=== PATIENT | male | born 1945 | race Two or more races ===

== ENCOUNTER 2018-12-05 11:27 | Inpatient (IN) | payer MEDICARE, MEDICAID ==
[~2018-12-05] VITALS: Ht 157.5 cm; Wt 56.7 kg
[~2018-12-05 11:27] MED LIST: BLOO-129 IN; CALC500T52 PO; DOCU100C36 PO; METF-440 PO; NIAC1000 PO; TAMS0.4C34 PO
--- NOTE | 2018-12-05 12:00 | NUR ---
patient BIBniece from home, sent by psych hearing voices -si/hi. on rom air, breathing evenly and unlabored connected to the monitor and pulse ox. kept comfortable, will continue to monitor accordingly.
--- NOTE | 2018-12-05 12:11 | NUR ---
urine collected and sent to lab
[2018-12-05] MEDS ORDERED: AMLODIPINE BESYLATE 5 MG TABLET ONE (12:29)
[2018-12-05] MEDS ORDERED: IV NS 0.9% 500 ML BAG IV ONE (12:30)
[2018-12-05] MEDS ORDERED: AMLODIPINE BESYLATE 5 MG TABLET PO ONE (12:30)
[2018-12-05 12:41] LABS: BASOPHILS % (AUTO) 0.5 % (0.0-2.0); EOSINOPHILS % (AUTO) 4.1 % (0.0-6.0); HEMATOCRIT 41 % (39-51); LYMPHOCYTES # (AUTO) 4.1 /CMM (0.8-4.8); LYMPHOCYTES % (AUTO) 48.5 % (20.0-44.0); MEAN CORPUSCULAR HGB CONC 34 g/dl (31.0-36.0); MEAN CORPUSCULAR VOLUME 98 fL (80-96); MONOCYTES # (AUTO) 0.5 /CMM (0.1-1.30); MONOCYTES % (AUTO) 6.3 % (2.0-12.0); NEUTROPHILS # (AUTO) 3.4 /CMM (1.8-8.9); NEUTROPHILS % (AUTO) 40.6 % (43.0-81.0); PLATELET COUNT (AUTO) 267 /CMM (150-450); RED BLOOD CELL COUNT(AUTO) 4.19 MIL/uL (4.5-6.0); WHITE BLOOD COUNT (AUTO) 8.5 K/uL (4.3-11.0)
[2018-12-05 12:48] LABS: APPEARANCE,URINE Clear (CLEAR); BILIRUBIN,URINE Negative (NEGATIVE); BLOOD, URINE Large Ery/uL (NEGATIVE); COLOR,URINE Yellow (YELLOW); KETONES,URINE Negative (NEGATIVE); LEUKOCYTE ESTERASE ,URINE Trace (NEGATIVE); NITRITE, URINE Negative (NEGATIVE); PROTEIN,URINE 30 mg/dl (NEGATIVE); UGLUCOSE Negative (NEGATIVE); UROBILINOGEN,URINE 0.2 EU/dL (0.2)
[2018-12-05 12:57] LABS: ALANINE AMINOTRANSFERASE 20 U/L (12-78); ALBUMIN 3.4 g/dL (3.4-5.0); ALCOHOL, BLOOD < 3 mg/dL (0-0); ALKALINE PHOSPHATASE 46 U/L (46-116); ASPARTATE AMINOTRANSFERASE 17 U/L (15-37); BILIRUBIN,DIRECT 0.1 mg/dL (0.0-0.2); BILIRUBIN,TOTAL 0.2 mg/dL (0.2-1.0); CALCIUM, SERUM 9.1 mg/dL (8.5-10.1); CARBON DIOXIDE 28 mmol/L (21-32); CHLORIDE 107 mmol/L (98-107); CREATININE 1.2 mg/dL (0.6-1.3); GLUCOSE 80 mg/dL (74-106); POTASSIUM 4.4 mmol/L (3.5-5.1); SODIUM SERUM 142 mmol/L (136-145); TOTAL PROTEIN, SERUM 7.2 g/dL (6.4-8.2); UREA NITROGEN, BLOOD 22 mg/dL (7-18)
[2018-12-05 12:58] LABS: BACTERIA,URINE Few /HPF (None Seen); SQUAMOUS EPITHELIAL CELL,UR Few /HPF (None Seen)
[2018-12-05 12:59] LABS: ACETAMINOPHEN 0 ug/ml (10-30); SALICYLATE 2.3 mg/dL (2.8-20.0)
--- NOTE | 2018-12-05 13:15 | NUR ---
SPOKE TO GPS ADMITTING AND WAS DIRECTED TO CALL ADMITTING TO HAVE PT SIGN VOLUNTARY FORMS. CALLED ADMITTING AND WAS DIRECTED TO CALL GPS, WHO THEN IN TURNED DIRECTED ME TO CALL ORTHOPAEDIC TECHNOLOGIST POWDER BLENDER. LEFT MESSAGE FOR ORTHOPAEDIC TECHNOLOGIST POWDER BLENDER TO COME IN AND HAVE PT SIGN VOLUNTARY FORM.
--- NOTE | 2018-12-05 13:58 | NUR ---
SPOKE TO OPERATIONS SUPPORT REPRESENTATIVE HEALTHCARE LIAISON. SHE IS GETTING CLARIFICATION AND WILL CALL ME BACK
--- NOTE | 2018-12-05 14:00 | NUR ---
GREIGE GOODS MARKER AUTOMOTIVE CONSULTANT ETA 45 MIN
[2018-12-05] MEDS ORDERED: DIVA500T2 PO (15:16)
[2018-12-05] MEDS ORDERED: HALO2TAB PO (15:16)
[2018-12-05] MEDS ORDERED: FINA5TAB11 PO (15:16)
[2018-12-05] MEDS ORDERED: AMLO5TAB4 PO (15:16)
[2018-12-05] MEDS ORDERED: PRAV20TA PO (15:23)
--- NOTE | 2018-12-05 17:06 | NUR ---
discharge patient via wheelchair going to room 215 2 Loan at bedside to assume care.
[2018-12-05] MEDS ORDERED: HALOPERIDOL LACTATE INJ 5 MG/ML VIAL IM STA (17:09)
[2018-12-05] MEDS ORDERED: diphenhydrAMINE HCL 50 MG/ML VIAL IM STA (17:10)
--- NOTE | 2018-12-05 17:15 | NUR ---
new pt. adm. to rm. and oriented. appears to be oriented x2.mentally slow and some difficulty answering question.skin check done and noted few bruises on knees.to take photos. initially hitting self and acting out. gas charger called in,call out to dr. mratins.received order for haldol and benadryl.
--- NOTE | 2018-12-05 17:20 | NUR ---
hep lock from er removed and bandage to site.
[2018-12-05] MEDS ORDERED: MAGNESIUM HYDROXIDE 30 ML UDC PO PRN (17:30)
[2018-12-05] MEDS ORDERED: ACETAMINOPHEN 325 MG TABLET PO PRN (17:30)
[2018-12-05] MEDS ORDERED: BLOOD SUGAR DIAGNOSTIC 1 EACH STRIP IN ONE (17:30)
[2018-12-05] MEDS ORDERED: MAG HYDROX/AL HYDROX/SIMETH 30 ML UDC PO PRN (17:30)
--- NOTE | 2018-12-05 17:40 | NUR ---
calmed pt. down-took 20 minutes to talk pt. in to putting on pt. gown.verbalized that he will not kill mom,and will be good,now says he wants to stay here a few days to get help.following nurse out of his rm. and in oneil.staying close by rn.wants reassurance as to where belongings are.abdayo cheryl called to inform her of pt. admit and status.
[2018-12-05] MEDS ORDERED: LORA1TAB PO (17:48)
--- NOTE | 2018-12-05 19:00 | NUR ---
accucheck done and 125 after eating dinner.
--- NOTE | 2018-12-05 19:00 | NUR ---
GPS ADMISSION NOTE, RECEIVED PATIENT FROM [facility]. PATIENT ARRIVED ON THIS UNIT AT 1999 VIA STRETCHER WITH EMT ESCORTS. PATIENT ADMITTED ON A 5150 HOLD FOR DTO, GD, AND DTS. PER HOLD PATIENT WAS BROUGHT TO E.R. AFTER PATIENT HAS BEEN GETTING PROGRESSIVELY WORSE OVER THE PAST THREE DAYS. PATIENT HAS NOT BEEN SLEEPING, IS HEARING VOICES, AND MAKING THREATS TO KILL OTHERS. PATIENT IS UNABLE TO CONTRACT FOR SAFETY AT THIS TIME. THE 5150 WAS REVIEWED AND THE DOCUMENTATION IN THE 5150 HOLD APPEARS TO REFLECT THE PRESENTATION OF THE PATIENT. UPON FACE TO FACE ASSESSMENT PATIENT IS NOTED TO BEING DISHEVELED, DISORGANIZED, DEPRESSED, CONFUSED, COOPERATIVE, PARANOID, AND NEEDS REDIRECTION. PATIENT IS CURRENTLY LYING IN BED AWAKE, HAS NO S/S OR COMPLAINTS OF PAIN AT THIS TIME. PATIENT IS DISPLAYING NO S/S OF APPARENT DISTRESS. PATIENT BREATHING IS UNLABORED WITH EQUAL RISE AND FALL OF THE CHEST. PATIENT IS ALERT AND ORIENTATED X 1 ON ROOM AIR. PATIENT ASSISTED WITH TURING AND REPOSITIONING Q2HR AND PRN FOR COMFORT AND CIRCULATION. PATIENT HAS NO NEEDS AT THIS TIME. PATIENT DENIES HOMICIDAL IDEATIONS AND HAS SUICIDE IDEATIONS AT THIS TIME. PATIENT SIGNED PAPER WORK. PATIENT ADVISED OF HIS HOLD AND PATIENT RIGHTS BOOKLET GIVEN. PATIENT IS UNDER THE PSYCHIATRIC CARE OF DR. HURST AND THE MEDICAL CARE OF DR BRANNON. PATIENT BELONGINGS WERE INVENTORIED AND CHECKED FOR CONTRABAND. ALL CONTRABAND REMOVED AND STORED IN PATIENT HALLWAY LOCKER. PATIENT ADVANCED DIRECTIVES PREFERENCE, IMMUNIZATIONS QUESTIONER, NECESSARY PAPERWORK COMPLETED. PATIENT SKIN ASSESSMENT COMPLETED. PATIENT ORIENTATED TO ROOM, FLOOR, AND STAFF WITH ALL QUESTIONS ANSWERED. PATIENT EDUCATED ON THE USE OF THE CALL GARZA. PATIENT BED SIDE RAILS ARE UP X 2 FOR SAFETY. PATIENT BED IS LOCKED, LOW AND I WILL CONTINUE TO MONITOR THIS PATIENT Q 15 MIN WITH THE HELP OF STAFF TO MAINTAIN SAFETY.
--- NOTE | 2018-12-05 19:10 | NUR ---
no need for haldol and benadryl as pt. calmed down.
--- NOTE | 2018-12-05 20:00 | NUR ---
GPS PM OPENING NOTE RECIEVED PATIENT WITH EYES CLOSED IN BED AWAKENS TO TOUCH AND VOICE. DENIES ANY PAIN. DENIES SI AND HI. PATIENT HAS HX OF RETARDATION, ORIENTED X1 REORIENTED TO PLACE AND TIME. PATIENT BREATHING EVEN AND UNLABORED. HAS NO PHYSICAL S/S OF DISTRESS WILL CONT TO MONITOR.
[2018-12-05 20:01] VITALS: BP 115/45
[2018-12-05 22:00] VITALS: BP 115/45
[2018-12-05] MEDS: TAMSULOSIN 0.4 MG CAP.SR.24H PO SCH (22:00)
--- NOTE | 2018-12-06 06:45 | NUR ---
dock or pier laborer states that patient refused am lab draw. states she will reattempt to draw patient later today.
[2018-12-06 08:00] VITALS: BP 100/52
[2018-12-06] MEDS: AMLODIPINE BESYLATE 5 MG TABLET PO SCH (08:31)
[2018-12-06] MEDS: ATORVASTATIN 10 MG TABLET PO SCH (08:31)
--- NOTE | 2018-12-06 14:31 | NUR ---
SW contacted pts niece Crystal [phone] who stated that pt currently lives with her and that she wishes for pt to return home with her once he is stable. Crystal did not provide SW with additional collateral information as she stated that she had already spoken with psychiatrist Dr. Guzmán and that he had a good understanding of what was going on and that she had nothing further to say.
--- NOTE | 2018-12-06 15:00 | NUR ---
INITIAL DISCHARGE PLAN: Per christine/MICHAEL Rojas [phone] [facility] [address] [facility] [address] [facility] [address]. SW will help form a safe and proper discharge in collaboration with .
[2018-12-06 16:00] VITALS: BP 142/67
[2018-12-06 16:08] LABS: CHOLESTEROL 168 mg/dL (<200); HDL CHOLESTEROL 59 mg/dL (40-60); LDL 84 mg/dL (0-99); TRIGLYCERIDES 163 mg/dL (30-150)
[2018-12-06 16:09] LABS: CALCIUM, SERUM 9.1 mg/dL (8.5-10.1); CARBON DIOXIDE 28 mmol/L (21-32); CHLORIDE 100 mmol/L (98-107); GLUCOSE 130 mg/dL (74-106); POTASSIUM 3.9 mmol/L (3.5-5.1); SODIUM SERUM 139 mmol/L (136-145); UREA NITROGEN, BLOOD 17 mg/dL (7-18)
[2018-12-06 16:10] LABS: ALANINE AMINOTRANSFERASE 25 U/L (12-78); ALBUMIN 3.9 g/dL (3.4-5.0); ALKALINE PHOSPHATASE 55 U/L (46-116); ASPARTATE AMINOTRANSFERASE 18 U/L (15-37); BILIRUBIN,TOTAL 0.2 mg/dL (0.2-1.0)
--- NOTE | 2018-12-06 16:20 | NUR ---
Group Note 12/06/18: SW approached patient in the hallway and invited them to attend today's support group at 2 pm in the activities room regarding mindfulness. Patient agreeable to participate in group. However, he did not attend session. SW respected patient self-determination. SW will invite patient to next group session.
[2018-12-06] MEDS: QUETIAPINE FUMARATE 100 MG TABLET PO SCH ×2 (18:21→21:00)
[2018-12-06 20:31] VITALS: BP 100/62
[2018-12-06] MEDS: DIVALPROEX SODIUM 250 MG TABLET.DR PO SCH (21:00)
[2018-12-06] MEDS: TAMSULOSIN 0.4 MG CAP.SR.24H PO SCH (21:11)
[2018-12-07 08:00] VITALS: BP 112/61
[2018-12-07] MEDS: AMLODIPINE BESYLATE 5 MG TABLET PO SCH (08:45)
[2018-12-07] MEDS: QUETIAPINE FUMARATE 100 MG TABLET PO SCH ×4 (08:45→21:18)
[2018-12-07] MEDS: DIVALPROEX SODIUM 250 MG TABLET.DR PO SCH ×2 (08:45→21:18)
[2018-12-07] MEDS: ATORVASTATIN 10 MG TABLET PO SCH (08:45)
[2018-12-07] MEDS: FINASTERIDE (5 MG) 5 MG TABLET PO SCH (08:51)
--- NOTE | 2018-12-07 09:11 | NUR ---
INTERVENTION BINTA: DC and psychiatrist Dr. Guzmán spoke with pt regarding his homicidal ideation of wanting to kill his mother. Pt stated that his mother is .
--- NOTE | 2018-12-07 09:39 | NUR ---
BINTA: DC contacted pts niece Crystal [phone] and left a voicemail requesting confirmation pts mother is .
--- NOTE | 2018-12-07 15:21 | NUR ---
GROUP NOTE: SW encouraged pt to attend group on this present day to discuss "impaired reality-testing." Pt was asleep and not easily aroused.
[2018-12-07 16:00] VITALS: BP 90/59
--- NOTE | 2018-12-07 19:30 | NUR ---
GPS RN NOTE, RECEIVED PATIENT AWAKE AND IN BED, NO S/S OR COMPLAINTS OF PAIN AT THIS TIME. PATIENT IS DISPLAYING NO S/S OF APPARENT DISTRESS AT THIS TIME. PATIENT BREATHING IS UNLABORED WITH EQUAL RISE AND FALL OF THE CHEST. PATIENT IS ALERT AND ORIENTED X 1-2 ON ROOM AIR WITH A SPO2 93 %. PATIENT IS COMPLIANT WITH MEDICATION, DISORGANIZED, CALM, ANXIOUS, AND COOPERATIVE. PATIENT DENIES SUICIDE IDEATIONS AND HOMICIDAL IDEATIONS AT THIS TIME. PATIENT ASSISTED WITH TURNING AND REPOSITIONING Q2 HR AND PRN FOR COMFORT AND CIRCULATION. PATIENT HAS NO NEEDS AT THIS TIME. PATIENT EDUCATED ON THE USE OF THE CALL GARZA. PATIENT BED SIDE RAILS UP X 2 FOR SAFETY, BED IS LOCKED AND LOW. WILL CONTINUE TO MONITOR Q15 MIN WITH THE HELP OF STAFF TO MAINTAIN SAFETY.
[2018-12-07 19:58] VITALS: BP 156/87
[2018-12-07] MEDS: TAMSULOSIN 0.4 MG CAP.SR.24H PO SCH (21:18)
[2018-12-08 08:00] VITALS: BP 105/60
[2018-12-08] MEDS: FINASTERIDE (5 MG) 5 MG TABLET PO SCH (08:32)
[2018-12-08] MEDS: ATORVASTATIN 10 MG TABLET PO SCH (08:32)
[2018-12-08] MEDS: QUETIAPINE FUMARATE 100 MG TABLET PO SCH ×4 (08:32→20:38)
[2018-12-08] MEDS: DIVALPROEX SODIUM 250 MG TABLET.DR PO SCH ×2 (08:32→20:37)
[2018-12-08] MEDS: AMLODIPINE BESYLATE 5 MG TABLET PO SCH (08:33)
[2018-12-08 16:00] VITALS: BP 100/60
[2018-12-08 19:49] VITALS: BP 163/64
[2018-12-08] MEDS: TAMSULOSIN 0.4 MG CAP.SR.24H PO SCH (21:23)
[2018-12-09 08:00] VITALS: BP 111/64
[2018-12-09] MEDS: ATORVASTATIN 10 MG TABLET PO SCH (08:18)
[2018-12-09] MEDS: DIVALPROEX SODIUM 250 MG TABLET.DR PO SCH ×2 (08:19→21:32)
[2018-12-09] MEDS: FINASTERIDE (5 MG) 5 MG TABLET PO SCH (08:19)
[2018-12-09] MEDS: QUETIAPINE FUMARATE 100 MG TABLET PO SCH ×4 (08:19→21:32)
[2018-12-09] MEDS: AMLODIPINE BESYLATE 5 MG TABLET PO SCH (08:19)
[2018-12-09] MEDS ORDERED: HALOPERIDOL LACTATE INJ 5 MG/ML VIAL IM ONE (12:00)
[2018-12-09] MEDS ORDERED: diphenhydrAMINE HCL 50 MG/ML VIAL IM ONE (12:00)
--- NOTE | 2018-12-09 12:00 | NUR ---
GPS/RN DR HURST ORDERED HALDOL 5MG IM ONCE AND BENADRYL 25MG IM ONCE FOR BEHAVIOR ESCALATION.
--- NOTE | 2018-12-09 12:28 | NUR ---
GPS/RN 1300 MEDS HELD PER ORDERS.
[2018-12-09 15:57] VITALS: BP 125/75
[2018-12-09 19:42] VITALS: BP 111/75
[2018-12-09] MEDS: TAMSULOSIN 0.4 MG CAP.SR.24H PO SCH (21:32)
[2018-12-09] MEDS: LORAZEPAM 0.5 MG TABLET PO PRN (21:49)
[2018-12-10 08:00] VITALS: BP 145/61
--- NOTE | 2018-12-10 08:25 | NUR ---
BINTA: SW received a voicemail from pts niece Crystal [phone] confirming that pts mother is .
[2018-12-10] MEDS: QUETIAPINE FUMARATE 100 MG TABLET PO SCH ×3 (08:27→16:20)
[2018-12-10] MEDS: ATORVASTATIN 10 MG TABLET PO SCH (08:27)
[2018-12-10] MEDS: AMLODIPINE BESYLATE 5 MG TABLET PO SCH (08:27)
[2018-12-10] MEDS: DIVALPROEX SODIUM 250 MG TABLET.DR PO SCH ×2 (08:27→21:33)
[2018-12-10] MEDS: FINASTERIDE (5 MG) 5 MG TABLET PO SCH (08:28)
[2018-12-10] MEDS: LORAZEPAM 0.5 MG TABLET PO PRN ×2 (13:56→22:15)
--- NOTE | 2018-12-10 13:58 | NUR ---
GPS RN NOTES PATIENT NOTED AGITATED, CONFUSED AND VERY ANXIOUS. SITTING ON THE HALLWAYS FLOOR. PRN ATIVAN 1MG PO GIVEN AT 1356. RE-ORIENTED AND MORAL SUPPORT GIVEN. WILL CONTINUE TO MONITOR PT CLOSELY.
[2018-12-10 16:00] VITALS: BP 112/57
[2018-12-10 20:08] VITALS: BP 122/72
[2018-12-10] MEDS: TAMSULOSIN 0.4 MG CAP.SR.24H PO SCH (21:33)
--- NOTE | 2018-12-10 22:15 | NUR ---
PATIENT NOTED PACING THROUGH HALLWAYS, INTERMITTENTLY YELLING AND TALKING TO SELF, AND BITING HANDS. PRN ATIVAN 1MG GIVEN AND TOLERATED WELL. WILL CONTINUE TO MONITOR FOR EFFECTIVENESS.
[2018-12-11] MEDS: ZOLPIDEM TARTRATE 5 MG TABLET PO PRN ×2 (00:12→21:33)
--- NOTE | 2018-12-11 00:12 | NUR ---
PATIENT IN AND OUT OF ROOM AND WALKING IN HALLWAY. PATIENT IRRITABLE AND STATED HE JUST WANTS TO SLEEP. PRN AMBIEN 5MG GIVEN AND TOLERATED WELL. WILL CONTINUE TO MONITOR FOR EFFECTIVENESS
--- NOTE | 2018-12-11 01:00 | NUR ---
KAILA AND SPOKE WITH DR. HURST, OBTAINED ORDER HALDOL 5 MG IM X1 AND DIPHENHYDRAMINE 25 MG X1. PATIENT IS CONFUSED, VERY AGITATED, BANGING HIS HEAD AGAINST THE WALL, PACING BACK AND FORTH, LYING AND SITTING ON THE FLOOR AT THE HALLWAY, AGGRESSIVE.
[2018-12-11] MEDS ORDERED: HALOPERIDOL LACTATE INJ 5 MG/ML VIAL IM ONE (01:30)
[2018-12-11] MEDS ORDERED: diphenhydrAMINE HCL 50 MG/ML VIAL IM ONE (01:30)
--- NOTE | 2018-12-11 04:30 | NUR ---
PATIENT NOTED WALKING AROUND HALLWAY, BEHAVIOR ESCALATED AND BEGAN YELLING, HITTING HIS HEAD AGAINST THE WALL, AND BITING HIS HANDS HANDS. SECURITY CALLED. PATIENT SAFELY ASSISTED TO AVEL CHAIR. HEAD NOTED WITH REDNESS, NO SWELLING OR SKIN BREAKDOWN NOTED. PICTURE OBTAINED. SKIN ON HANDS REMAIN INTACT WITH NO REDNESS NOTED. PATIENT KEPT NEAR STATION FOR CLOSE OBSERVATION.
[2018-12-11 08:00] VITALS: BP 129/85
[2018-12-11] MEDS: ATORVASTATIN 10 MG TABLET PO SCH (09:01)
[2018-12-11] MEDS: QUETIAPINE FUMARATE 100 MG TABLET PO SCH ×3 (09:02→21:31)
[2018-12-11] MEDS: AMLODIPINE BESYLATE 5 MG TABLET PO SCH (09:02)
[2018-12-11] MEDS: FINASTERIDE (5 MG) 5 MG TABLET PO SCH (09:02)
[2018-12-11] MEDS: DIVALPROEX SODIUM 250 MG TABLET.DR PO SCH ×3 (09:05→16:56)
--- NOTE | 2018-12-11 15:50 | NUR ---
Group Note: SW encouraged pt to participate in group on 12/11/18 at 2pm discussing discharge planning. Pt is developmentally delayed and appeared to be aggressive. Pt is not appropriate for group therapy.
[2018-12-11 16:00] VITALS: BP 143/70
[2018-12-11] MEDS: LORAZEPAM 0.5 MG TABLET PO PRN (17:55)
[2018-12-11 20:00] VITALS: BP 111/64
[2018-12-11 20:18] VITALS: BP 111/64
[2018-12-11 20:19] VITALS: BP 135/61
[2018-12-11] MEDS: TAMSULOSIN 0.4 MG CAP.SR.24H PO SCH (21:31)
--- NOTE | 2018-12-11 21:35 | NUR ---
ELECTRIC SOLDERER NOTES ROUTINE MEDS GIVEN WELL HIS SLEEP MEDICATION . WALKING TO THE CASTRO WAY THEN BACK TO HIS ROOM. NEEDS REDIRECTED . BED ALARM SET AND SIDE RAILS UP FOR PT SAFETY.
--- NOTE | 2018-12-11 22:11 | NUR ---
MUD JACK NOZZLEMAN NOTES PT SEEN WALKING TO THE HALLWAY AND STARTED BANGING HIS FOREHEAD TO THE WALL AND BITING HIS HAND. CALLED SECURITY FOR ASSISTANCE AND PT WAS ASSISTED TO THE AVEL CHAIR SAFELY TO PREVENT HIM FOR HURTING HIMSELF. NO SIGNS OF ANY ACUTE DISTRESS NOTED. CONTINUE CLOSELY MONITORING.
--- NOTE | 2018-12-11 23:41 | NUR ---
RELINER NOTES PT STILL ON AVEL CHAIR WITH THE STAFF AT THE SIDE, HE'S SLEEPY BUT EASILY TO AROUSE . NO SIGNS OF ANY ACUTE DISTRESS NOTED. WILL CONTINUE MONITORING FOR SAFETY.
--- NOTE | 2018-12-12 02:00 | NUR ---
INJECTION PRESS OPERATOR NOTES PT SLEEPING WITHOUT ANY DISTRESS NOTED. AROUSE EASILY .KEPT HIM COMFORTABLE AT ALL TIMES. WILL CONTINUE MONITORING FOR SAFETY.
--- NOTE | 2018-12-12 06:54 | NUR ---
DIRECTOR OF CARDIOLOGY CLOSING NOTES PT SLEEPING COMFORTABLY IN AVEL CHAIR BUT UNABLE TO PUT HIS BACK TO HIS BED BECAUSE AROUSE EASILY AND BECAME AGITATED. NO SIGNS OF ANY ACUTE DISTRESS NOTED. KEPT HIM WARM AND COMFORTABLE AT ALL TIMES. SLEPT 4 HRS . WILL ENDORSE TO AM NURSE FOR CONTINUITY OF CARE.
[2018-12-12 08:00] VITALS: BP 139/78
[2018-12-12] MEDS: QUETIAPINE FUMARATE 100 MG TABLET PO SCH ×3 (09:11→20:21)
[2018-12-12] MEDS: DIVALPROEX SODIUM 250 MG TABLET.DR PO SCH ×3 (09:11→16:52)
[2018-12-12] MEDS: FINASTERIDE (5 MG) 5 MG TABLET PO SCH (09:11)
[2018-12-12] MEDS: AMLODIPINE BESYLATE 5 MG TABLET PO SCH (09:11)
[2018-12-12] MEDS: ATORVASTATIN 10 MG TABLET PO SCH (09:11)
[2018-12-12] MEDS: LORAZEPAM 0.5 MG TABLET PO PRN (09:14)
--- NOTE | 2018-12-12 15:35 | NUR ---
GROUP NOTE: SW encouraged pt to participate in group on this present day discussing "discharge planning." Pt was asleep and not easily aroused.
[2018-12-12 16:00] VITALS: BP 130/69
[2018-12-12] MEDS: ZOLPIDEM TARTRATE 5 MG TABLET PO PRN (20:21)
[2018-12-12] MEDS: TAMSULOSIN 0.4 MG CAP.SR.24H PO SCH (20:21)
[2018-12-12 20:35] VITALS: BP 133/61
[2018-12-13] MEDS: LORAZEPAM 0.5 MG TABLET PO PRN ×2 (02:58→20:35)
[2018-12-13 08:00] VITALS: BP 90/56
[2018-12-13] MEDS: FINASTERIDE (5 MG) 5 MG TABLET PO SCH (09:15)
[2018-12-13] MEDS: DIVALPROEX SODIUM 250 MG TABLET.DR PO SCH ×3 (09:15→16:58)
[2018-12-13] MEDS: QUETIAPINE FUMARATE 100 MG TABLET PO SCH ×3 (09:15→21:42)
[2018-12-13] MEDS: ATORVASTATIN 10 MG TABLET PO SCH (09:20)
[2018-12-13] MEDS: AMLODIPINE BESYLATE 5 MG TABLET PO SCH (09:20)
[2018-12-13 16:00] VITALS: BP 108/66
--- NOTE | 2018-12-13 20:03 | NUR ---
RN OPENING NOTES PATIENT IN BED WITH NO APPARENT DISTRESS. BREATHING EVEN AND UNLABORED. ALERT TO SELF, NO COMPLAINT OF PAIN OR DISCOMFORT. REINFORCED EDUCATION ON THE USE OF CALL LIGHT. BILATERAL UPPER SIDERAILS UP, LOCK AND AT LOWEST POSITION FOR SAFETY. WILL CONTINUE TO MONITOR.
[2018-12-13 20:12] VITALS: BP 113/68
[2018-12-13] MEDS: ZOLPIDEM TARTRATE 5 MG TABLET PO PRN (20:35)
[2018-12-13] MEDS: TAMSULOSIN 0.4 MG CAP.SR.24H PO SCH (21:41)
[2018-12-14 08:00] VITALS: BP 90/59
[2018-12-14] MEDS: DIVALPROEX SODIUM 250 MG TABLET.DR PO SCH (09:40)
[2018-12-14] MEDS: AMLODIPINE BESYLATE 5 MG TABLET PO SCH (09:40)
[2018-12-14] MEDS: FINASTERIDE (5 MG) 5 MG TABLET PO SCH (09:40)
[2018-12-14] MEDS: QUETIAPINE FUMARATE 100 MG TABLET PO SCH ×4 (09:40→21:53)
[2018-12-14] MEDS: ATORVASTATIN 10 MG TABLET PO SCH (09:40)
[2018-12-14 16:02] VITALS: BP_SYST 133; BP_SYST 94; BP_DIAS 57; BP_DIAS 63
[2018-12-14 20:10] VITALS: BP 116/66
[2018-12-14] MEDS: DIVALPROEX SODIUM 500 MG TABLET.DR PO SCH (21:52)
[2018-12-14] MEDS: TAMSULOSIN 0.4 MG CAP.SR.24H PO SCH (21:52)
[2018-12-15 08:00] VITALS: BP 90/53
[2018-12-15 09:00] VITALS: BP 117/69
[2018-12-15] MEDS: AMLODIPINE BESYLATE 5 MG TABLET PO SCH (09:00)
--- NOTE | 2018-12-15 09:19 | NUR ---
BP RECHECK-SEE GRAPHIC.
[2018-12-15] MEDS: DIVALPROEX SODIUM 250 MG TABLET.DR PO SCH (09:38)
[2018-12-15] MEDS: QUETIAPINE FUMARATE 100 MG TABLET PO SCH ×4 (09:38→21:18)
[2018-12-15] MEDS: FINASTERIDE (5 MG) 5 MG TABLET PO SCH (09:38)
[2018-12-15] MEDS: ATORVASTATIN 10 MG TABLET PO SCH (09:38)
[2018-12-15 16:00] VITALS: BP 120/72
[2018-12-15 17:00] VITALS: BP 124/69
--- NOTE | 2018-12-15 17:55 | NUR ---
cooperative and med compliant,fearful at times.
[2018-12-15 20:03] VITALS: BP 141/75
[2018-12-15] MEDS: TAMSULOSIN 0.4 MG CAP.SR.24H PO SCH (21:18)
[2018-12-15] MEDS: DIVALPROEX SODIUM 500 MG TABLET.DR PO SCH (21:18)
[2018-12-15] MEDS: ZOLPIDEM TARTRATE 5 MG TABLET PO PRN (22:32)
[2018-12-16 08:00] VITALS: BP 110/64
[2018-12-16] MEDS: QUETIAPINE FUMARATE 100 MG TABLET PO SCH ×4 (08:16→23:15)
[2018-12-16] MEDS: DIVALPROEX SODIUM 250 MG TABLET.DR PO SCH (08:16)
[2018-12-16] MEDS: ATORVASTATIN 10 MG TABLET PO SCH (08:16)
[2018-12-16] MEDS: AMLODIPINE BESYLATE 5 MG TABLET PO SCH (08:17)
[2018-12-16] MEDS: FINASTERIDE (5 MG) 5 MG TABLET PO SCH (08:17)
[2018-12-16 16:00] VITALS: BP 113/61
[2018-12-16 20:28] VITALS: BP 108/57
[2018-12-16] MEDS: TAMSULOSIN 0.4 MG CAP.SR.24H PO SCH (23:15)
[2018-12-16] MEDS: DIVALPROEX SODIUM 500 MG TABLET.DR PO SCH (23:15)
[2018-12-17 08:00] VITALS: BP_SYST 109; BP_SYST 145; BP_DIAS 64; BP_DIAS 67
[2018-12-17] MEDS: DIVALPROEX SODIUM 250 MG TABLET.DR PO SCH (08:14)
[2018-12-17] MEDS: QUETIAPINE FUMARATE 100 MG TABLET PO SCH ×4 (08:14→22:00)
[2018-12-17] MEDS: AMLODIPINE BESYLATE 5 MG TABLET PO SCH (08:14)
[2018-12-17] MEDS: FINASTERIDE (5 MG) 5 MG TABLET PO SCH (08:14)
[2018-12-17] MEDS: ATORVASTATIN 10 MG TABLET PO SCH (08:15)
--- NOTE | 2018-12-17 15:39 | NUR ---
GROUP NOTE: SW encouraged pt to participate in group therapy on this present day discussing "discharge planning." Pt is unable to participate in group therapy due to pt being asleep and not being easily aroused.
[2018-12-17 16:27] VITALS: BP 100/58
[2018-12-17 21:14] VITALS: BP 114/65
[2018-12-17] MEDS: TAMSULOSIN 0.4 MG CAP.SR.24H PO SCH (22:00)
[2018-12-17] MEDS: DIVALPROEX SODIUM 500 MG TABLET.DR PO SCH (22:00)
--- NOTE | 2018-12-17 23:20 | NUR ---
gps rn note: Patient refused hs meds, explained the risk and benefits x 3 attempts but patient still refused and stated no i want to sleep. Will continue to monitor q15 mins for safety
[2018-12-18 08:00] VITALS: BP 103/59
[2018-12-18] MEDS: DIVALPROEX SODIUM 250 MG TABLET.DR PO SCH (08:07)
[2018-12-18] MEDS: FINASTERIDE (5 MG) 5 MG TABLET PO SCH (08:07)
[2018-12-18] MEDS: ATORVASTATIN 10 MG TABLET PO SCH (08:07)
[2018-12-18] MEDS: QUETIAPINE FUMARATE 100 MG TABLET PO SCH ×4 (08:08→21:32)
[2018-12-18] MEDS: AMLODIPINE BESYLATE 5 MG TABLET PO SCH (08:22)
--- NOTE | 2018-12-18 08:57 | NUR ---
DC contacted pts christine Rojas [phone] to coordinate discharge for tomorrow Monday12/19/18. Crystal stated that she would be coming to milk pickup truck driver pt between [id number]. Crystal also requested psychiatrist prescribe Lunesta, DC informed her that she would inform psychiatrist but that it was not a guarantee as pt is currently not on that sleeping medication. Crystal also requested pts prescription be faxed to [facility] Address: [address] [place] [address] .
--- NOTE | 2018-12-18 10:48 | NUR ---
DC contacted pts christine Rojas [phone] to inform her that psychiatrist cannot prescribe Lunesta due to its addictive side effects and also stated that pt does not need it due to him being on Seroquel and sleeping 10 hours last night. Christine understood and agreed.
[2018-12-18 16:00] VITALS: BP 104/57
--- NOTE | 2018-12-18 18:12 | NUR ---
RN GPS NOTES PT AWAKE, ALERT AND ORIENTED, SITTING AT THE REC ROOM, NO BEHAVIOR PROBLEM NOTED, COMPLIANT WITH MEDICATIONS, REDIRECTION PROVIDED NECESSARY, SAFETY PRECAUTIONS OBSERVED, CALM AND COOPERATIVE WITH CARE, AMBULATES WITH STEADY GAIT.
--- NOTE | 2018-12-18 19:41 | NUR ---
AWAKE, ALERT, CONFUSED, AMBULATING/STEADY GAIT. NO S/S OF ANY PAIN. ENVIRONMENTAL SAFETY CHECK DONE. BED ON LOWEST POSITION, BED ALARM ON. SAFETY PRECAUTION OBSERVED. WILL CONTINUE TO MONITOR Q 15 MINS. FOR SAFETY AND BEHAVIOR.
[2018-12-18 20:37] VITALS: BP 130/72
[2018-12-18] MEDS: TAMSULOSIN 0.4 MG CAP.SR.24H PO SCH (21:31)
[2018-12-18] MEDS: DIVALPROEX SODIUM 500 MG TABLET.DR PO SCH (21:31)
--- NOTE | 2018-12-19 06:48 | NUR ---
CALM AND QUIET THE WHOLE NIGHT, SLEPT WELL X 8 HRS. WILL CONTINUE TO MONITOR.
[2018-12-19 08:00] VITALS: BP 129/82
[2018-12-19] MEDS: FINASTERIDE (5 MG) 5 MG TABLET PO SCH (08:37)
[2018-12-19] MEDS: ATORVASTATIN 10 MG TABLET PO SCH (08:37)
[2018-12-19] MEDS: AMLODIPINE BESYLATE 5 MG TABLET PO SCH (08:37)
[2018-12-19] MEDS: DIVALPROEX SODIUM 250 MG TABLET.DR PO SCH (08:37)
[2018-12-19] MEDS: QUETIAPINE FUMARATE 100 MG TABLET PO SCH ×4 (08:38→21:15)
--- NOTE | 2018-12-19 11:37 | NUR ---
DISCHARGE NOTE: Pt will be discharged between 7:00-8:00pm [facility] [address] [facility] [address] [facility] [address]. Pts hcristine Rojas [phone] will be picking pt up and transporting home. Pts mood is euthymic with congruent affect. Pt denied visual/auditory hallucinations and denied suicidal/homicidal ideation. Pt will follow up with Psychiatrist: Dr. Guzmán [address] [facility] [address] [address] [phone] and Tire Mounter: Dr. Rubio Frey Address: [address] [facility] [address] [address] . The multidisciplinary exit care form was done, printed, signed, and given to the patient. Addendum: 12/20/18 at 0823 by BRIANA IRWIN Pt was not picked up by hcristine yesterday but she will be picking pt up on this present day at 0900.
[2018-12-19 16:00] VITALS: BP 123/79
--- NOTE | 2018-12-19 16:00 | NUR ---
DISCHARGE PHOTO TAKEN.TOLERATED WELL.
[2018-12-19 20:00] VITALS: BP 114/71
[2018-12-19 20:59] VITALS: BP 114/91
[2018-12-19] MEDS: TAMSULOSIN 0.4 MG CAP.SR.24H PO SCH (21:15)
[2018-12-19] MEDS: DIVALPROEX SODIUM 500 MG TABLET.DR PO SCH (21:15)
[2018-12-20 08:00] VITALS: BP 113/71
[2018-12-20 08:11] VITALS: BP 113/71
[2018-12-20] MEDS: FINASTERIDE (5 MG) 5 MG TABLET PO SCH (08:11)
[2018-12-20] MEDS: DIVALPROEX SODIUM 250 MG TABLET.DR PO SCH (08:11)
[2018-12-20] MEDS: ATORVASTATIN 10 MG TABLET PO SCH (08:11)
[2018-12-20] MEDS: QUETIAPINE FUMARATE 100 MG TABLET PO SCH (08:11)
[2018-12-20] MEDS: AMLODIPINE BESYLATE 5 MG TABLET PO SCH (08:11)
--- NOTE | 2018-12-20 08:15 | NUR ---
GPS/RN - Notes Per Crystal (christine), her friend Domenic will case picker Milton this morning around 09:00. Per christine Rojas, Milton is able to sign his discharge papers.
--- NOTE | 2018-12-20 09:29 | NUR ---
DR. HURST GAVE AN ORDER TO D/C HOLD AND D/C HOME AND TO FOLLOW UP WITH PSYCH AND MEDICAL DOCTORS. PT. WITHOUT DISTRESS, DENIES SUICIDAL AND HOMICIDAL.
--- NOTE | 2018-12-20 09:45 | NUR ---
GPS/RN - Discharge Note Milton Hernandes is a 73 year old male, discharged home in stable condition. Reviewed discharge instructions with christine Rojas over the phone and she verbalized full understanding. Patient advised to follow up with his PMD within one week. Patient is compliant with medications, cooperative with treatment plans. Patient is alert and oriented x 2, calm, ambulates with steady gait, denies pain, not in any form of distress, afebrile, VSS. Patient denies suicidal ideation or homicidal ideation, no visual or auditory hallucinations at this time and instructed to go to the nearest ER if developing SI/HI. Discharge pictures were taken yesterday. Behavior improved, psychiatric treatment plans met, medical treatment plans deferred for continual monitoring. Medications reconciled with Dr. Guzmán and Dr. Sierra. Prescription given to the patient. Educated patient about after care plan and copy provided. Returned all personal belongings to patient and he deny any missing items. Patient left the unit at 09:30 via private car with friend Domenic.
== END 2018-12-20 09:30 | disposition home or self-care (01) | DRG 885 ==
LOC: ER 11:28 → GPS 16:49
PROVIDERS: ADMIT Psychiatry & Neurology Psychiatry; ATTEND Internal Medicine
DX: F20.0 Paranoid schizophrenia (principal); G93.40 Encephalopathy, unspecified; E86.0 Dehydration; E11.9 Type 2 diabetes mellitus without complications; Z85.46 Personal history of malignant neoplasm of prostate; R62.50 Unspecified lack of expected normal physiological development in childhood; I10 Essential (primary) hypertension; E78.5 Hyperlipidemia, unspecified; N40.0 Benign prostatic hyperplasia without lower urinary tract symptoms; F41.9 Anxiety disorder, unspecified; F32.9 Major depressive disorder, single episode, unspecified; F84.0 Autistic disorder; D64.9 Anemia, unspecified; F29 Unspecified psychosis not due to a substance or known physiological condition
CPT/HCPCS: 36415; 80048-TC; 80053-TC; 80061-TC; 80076-TC; 80164-TC; 80305; 81000-TC; 82962-TC; 85025-TC; 87081-TC; G0480; J1200; J1630; J7040